=== PATIENT | female | born 1990 | race Asian ===

== ENCOUNTER 2017-03-19 11:28 | Emergency (ER) | payer SELFPAY ==
[~2017-03-19] VITALS: Ht 167.6 cm; Wt 50.1 kg
[2017-03-19 11:28] VITALS: TEMP 37.4; Ht 167.6 cm; Wt 50.1 kg
[2017-03-19 12:34] LABS: MANUAL MICROSCOPIC REQUIRED? YES; URINE APPEARANCE CLOUDY (CLEAR); URINE BILIRUBIN NEG (NEG); URINE NITRITE NEG (NEG); URINE PH 5.5 (4.5-7.5); URINE SPECIFIC GRAVITY >= 1.030 (1.000-1.030); UROBILINOGEN NEG (NEG)
[2017-03-19 12:40] LABS: REVIEW REQ? NO
[2017-03-19 12:41] LABS: URINE COLOR RED
[2017-03-19 12:57] VITALS: BP 106/55; PULSE 71; O2SAT 99
[2017-03-19] MEDS ORDERED: PHEN-876 PO (13:02)
[2017-03-19] MEDS ORDERED: CEPH500C PO (13:02)
[2017-03-19 13:03] LABS: URINE RBC >30 /hpf (0-4); URINE WBC >30 /hpf (0-5)
[2017-03-19 13:04] LABS: URINE BACTERIA 1+ (NEG)
--- NOTE | 2017-03-19 13:05 | EMERGENCY ROOM VISIT NOTE ---
ED Visit Note First contact with patient: 11:34 CHIEF COMPLAINT: Frequent and painful urination HISTORY OF PRESENT ILLNESS: This 26-year-old female has had increased frequency of urination, burning pain with urination, and a feeling of incomplete voiding that started last night. She passes very small volumes of urine with each episode of voiding. She has noticed some blood in her urine as well. She denies back pain, abdominal pain, fever, or vaginal discharge. No previous history of UTI. She denies . REVIEW OF SYSTEMS: GENERAL: No fever or chills, easy fatigue, loss of appetite , or significant weight change. GASTROINTESTINAL: No abdominal pain, vomiting , loss of appetite, or diarrhea. PMH: The patient is healthy; there is no significant medical or surgical history. SOCIAL HISTORY: Patient lives at home with her and child. She denies tobacco use. Patient recently moved to this area from [facility]. PHYSICAL EXAM: Vital Signs: Reviewed Nurse's notes. The abdomen is soft, mildly tender in the suprapubic area, but no masses or organs are felt. There is no CVA tenderness. The skin is clear and the patient is alert and appears well. EMERGENCY DEPARTMENT COURSE: I examined the patient. She has no CVA tenderness or significant abdominal tenderness on exam. She appears well-hydrated. She is afebrile and vital signs are stable. Urinalysis shows pyuria and hematuria. Nitrate test is negative. Urine culture is pending. Urine is negative. Prescription for Keflex was provided to the patient. She is in the process of being set up with the PCP, I encouraged her to follow up if her symptoms do not improve, she verbalized understanding. Patient was discharged home in stable condition and ambulatory. Current/Historical Medications Scheduled Cephalexin Monohydrate (Keflex), 500 MG PO BID Phenazopyridine HCl (Pyridium), 200 MG PO TID Allergies Coded Allergies: No Known Allergies (Unverified , 03/19/17) Vital Signs Date Time Temp Pulse Resp B/P (MAP) Pulse Ox O2 Delivery O2 Flow Rate FiO2 03/19/17 12:57 71 18 106/55 99 Room Air 03/19/17 11:28 37.4 89 18 122/77 99 Room Air Laboratory Results Test 03/19/17 11:52 03/19/17 11:55 Urine Color RED Urine Appearance CLOUDY (CLEAR) Urine pH 5.5 (4.5-7.5) Urine Specific Gallant >= 1.030 (1.000-1.030) Urine Protein 2+ (NEG) Urine Glucose (UA) NEG (NEG) Urine Ketones TRACE (NEG) Urine Occult Blood 3+ (NEG) Urine Nitrite NEG (NEG) Urine Bilirubin NEG (NEG) Urine Urobilinogen NEG (NEG) Urine Leukocyte Esterase TRACE (NEG) Urine RBC >30 /hpf (0-4) Urine WBC >30 /hpf (0-5) Urine Epithelial Cells >30 /lpf (0-5) Urine Bacteria 1+ (NEG) Departure Information Impression Primary Impression: Urinary tract infection Dispostion Home / Self-Care Condition GOOD Prescriptions Phenazopyridine HCl (Pyridium) 200 Mg Tab 200 MG PO TID for 2 Days, #6 TAB Prov: Doreen Pennington CRNP 03/19/17 Cephalexin Monohydrate (Keflex) 500 Mg Cap 500 MG PO BID for 7 Days, #14 CAP Prov: Doreen Pennington CRNP 03/19/17 Referrals No Doctor, Assigned (PCP) [facility] Patient Instructions ED UTI Cystitis Female, My [facility] Additional Instructions You have been treated in the Emergency Department for a Urinary Tract Infection (UTI). You have been prescribed Keflex to be taken twice a day for 7 days. This is an antibiotic. All antibiotics have the potential to cause diarrhea. Stop this medication and contact a medical provider if you were to develop any significant adverse side effects including: wheezing, shortness of breath, passing out, vomiting, or a diffuse rash. Always take antibiotics as directed and COMPLETE the ENTIRE course regardless of the improvement of your symptoms. You have been prescribed Pyridium to be taken as prescribed. This medicine will help with the urinary symptoms that you have been experiencing. Be aware that Pyridium may turn your urine a red-orange or brown color. This effect is harmless. Drink plenty of fluids and stay well hydrated. As with any trip to the Emergency Department, you should follow-up with your Primary Care Provider from today's visit. Return to the emergency department if your symptoms persist despite treatment plan outlined above or if the following symptoms occur: Fever/chills, low back pain, , severe abdominal pain, persistent nausea/vomiting, if you are unable to urinate, or large amounts of blood in the urine. Problem Qualifiers Primary Impression: Urinary tract infection Urinary tract infection type: acute cystitis Hematuria presence: with hematuria Qualified Codes: N30.01 - Acute cystitis with hematuria
--- NOTE | 2017-03-21 15:24 | Pharmacy Progress Note ---
ED Pharmacist Culture FollowUp Date of Service: Mar 21, 2017. Patient was sent home with a prescription for cephalexin, which should cover the E. coli growing from the patient's urine culture, based on reported sensitivity to cefazolin.
== END 2017-03-19 13:16 | disposition home or self-care (01) ==
LOC: C.EDB 11:28 → C.EDC 13:16
DX: N30.01 Acute cystitis with hematuria (principal)